=== PATIENT | female | born 1995 | race Native Hawaiian/Other Pacific Islander ===

== ENCOUNTER 2017-01-23 20:33 | Emergency (ER) | payer BC ==
[~2017-01-23] VITALS: Ht 162.6 cm; Wt 52.2 kg
--- NOTE | 2017-01-23 21:41 | NUR ---
Patient discharged to home in stable conditon. Written and verbal after care instructions given. Patient verbalizes understanding of instructions.
== END 2017-01-23 21:42 | disposition home or self-care (01) ==
LOC: ER 20:35
DX: M19.90 Unspecified osteoarthritis, unspecified site (principal)
CPT/HCPCS: A4663